=== PATIENT | male | born 1990 | race Caucasian/White ===

== ENCOUNTER 2017-03-03 13:16 | Emergency (ER) | payer OTHER ==
[~2017-03-03] VITALS: Ht 167.6 cm; Wt 127.3 kg
[2017-03-03 13:25] VITALS: BP 143/115; PULSE 74; RESP 20; O2SAT 94
[2017-03-03] MEDS ORDERED: predniSONE 20 mg Tablet PO ONE (14:15)
[2017-03-03] MEDS ORDERED: Albuterol 2.5 mg/3 mL Inhalation Solution NEB ONE (14:15)
[2017-03-03] MEDS ORDERED: Albuterol-Ipratropium 3 mL Inhalation Solution NEB ONE (14:15)
--- NOTE | 2017-03-03 14:22 | ED.REPORT ---
HPI-Dyspnea / Wheezing Date of Service Mar 03, 2017 ED Provider: Murali Tran PA-C Garry is an otherwise healthy 26-year-old male who presents emergency Department with a chief complaint of cough. Patient reports a one and a half week history of a cough associated with dyspnea on exertion, shortness of breath , wheezing, posttussive vomiting, pleuritic chest pain. Patient denies fever, chills, palpitations, abdominal pain, diarrhea, unilateral leg swelling, hemoptysis, history of cancer, history of trauma or immobilization, history of hormone use, history of PE/DVT. Admits to recently taking up pot smoking again. He also admits to vaping. Nursing Notes Stated Complaint: COUGH,VOMITING Chief Complaint: General Complaint Nursing Notes Reviewed: Yes Allergies: Coded Allergies: No Known Allergies (Verified Allergy, Unknown, 02/17/14) Scheduled Prednisone (PredniSONE) 20 Mg Tablet 40 MG PO DAILY General Time Seen by MD: 14:05 Chief Complaint Cough Past Medical History Past Medical History Unknown Past Surgical History Unknown Smoking History Unknown if Ever Smoker Social History Alcohol use tobacco abuse drug abuse all reported. Review of Systems Negative unless stated otherwise in history of present illness Physical Exam General: Well appearing, well developed, well nourished, no acute distress. Head: Atraumatic, normocephalic. Eyes: No scleral icterus or injection. No discharge. Vision grossly intact. ENT: Voice clear, hearing grossly intact. Respiratory: Clinically evident cough. Regular rate and rhythm. Diffuse bilateral wheezing. No respiratory distress. No increased work of breathing, speaks in complete sentences. Cardiovascular: Regular rate and rhythm, without murmur, gallop or rub. No pedal edema. Gastrointestinal: Abdomen flat and non-tender without guarding or rebound. Bowel sounds normoactive. Back: Normal to inspection. Skin: Warm and dry. Neurological: Grossly nonfocal. Psychological: Alert and oriented. Speech appropriate, linear and logical. Behavior appropriate. Initial Vital Signs Vital Signs (First) Date Time Temp Pulse Resp B/P Pulse Ox O2 Delivery O2 Flow Rate FiO2 03/03/17 13:25 36.6 74 20 143/115 94 Room Air Elevated blood pressure Interpretation & Diagnostics X-Ray Chest Interpretation Chest Xray Interpretation: PROCEDURE: X-RAY CHEST, TWO VIEWS ([id number]) INDICATIONS: cough IMPRESSION: No acute disease Interpretation / Wet Read by: Interpret - Radiologist Re-Eval/Medical Decision Med Decision/Clinical Course Otherwise healthy 26-year-old male just a chief complaint of cough, wheeze, shortness of breath for 10 days. Associated with posttussive vomiting. Denies fever. Recently restarted pot smoking. Admits to vaping. Physical examination reveals diffuse bilateral expiratory wheezes, otherwise benign with normal vital signs. Chest x-ray is normal. I find this reassuring against pneumonia, pneumothorax, pleural effusion Patient is Wells low risk, perc negative. I am reassured against PE. Patient improves somewhat with DuoNeb and albuterol nebulizer. I discussed case with Dr. Self, who met with and examined the patient. We believe this is most likely an asthma exacerbation. Plan to discharge with albuterol inhaler training, steroid burst. Advised regarding primary care follow -up, provided emergency return precautions. Patient verbalized understanding of , and consent to, the plan. Discharge & Departure Impression: Primary Impression: Asthma exacerbation Additional Impression: Elevated blood pressure reading Disposition: Home Discharge Condition All VS Reviewed: Yes Condition: Stable Patient Instructions: Asthma (ED) Additional Instructions: Evaluation or cough in the emergency department includes interview, physical examination and chest x-ray. These are all reassuring that this is unlikely because by an immediately dangerous condition such as pneumonia or a blood clot in her lungs. I believe this is most likely to be an exacerbation of your asthma. You've been given a dose of steroids here in the emergency department. I will write a prescription for additional doses to be taken once a day for the next 4 days starting tomorrow. I will also write you prescription for an albuterol inhaler to take 2 puffs every 4 hours for the next several days. You can take 2 puffs as needed for wheezing after that. I recommend you stop smoking and vaping as this is likely to aggravate your symptoms. Follow-up with your primary care provider in about 1 week to be sure this is progressing as expected Return to emergency department for any new or worsening symptoms including increasing shortness of breath, difficulty breathing, pain in your chest. I also note that your blood pressure was elevated during your visit to the emergency department. Please discuss this with your primary care provider. Referrals: Ej Caruso MD (PCP) EDSupervising Provider for APC: Ignacio Self MD Attending Statement Discussed case with JORDAN Tran. I evaluated the patient independently and agree with plan as above. In brief, 26-year-old male presenting with cough and wheezing. Chest x-ray is clear. PERC negative. Patient improved with nebulizers. He will be discharged with steroid course and albuterol as needed. Return precautions given. copies to: Ej Caruso MD, Seth PA-C Mar 03, 2017 14:22 Ignacio Self MD Mar 03, 2017 17:33
[2017-03-03 14:34] VITALS: PULSE 81; RESP 18; O2SAT 95
--- NOTE | 2017-03-03 14:52 | DRSVH ---
PROCEDURE: X-RAY CHEST, TWO VIEWS ([id number]) INDICATIONS: cough TECHNIQUE: 2 views of the chest were acquired. COMPARISON: [facility], , CHEST 1VW (PORTABLE), 05/06/2014, 7:58. FINDINGS: Surgical changes and devices: None. Lungs and pleura: No pleural effusions or pneumothorax. Lungs are clear. Presumed small calcified granulomas projecting in the upper lobes bilaterally. Mediastinum: Mediastinal contours are normal. Heart size is normal. Bones and chest wall: No suspicious bony abnormalities. Soft tissues appear unremarkable. IMPRESSION: No acute disease Dictated by: Nolan Simons M.D. on 03/03/2017 at 14:50 Approved by: Nolan Simons M.D. on 03/03/2017 at 14:51
[2017-03-03] MEDS ORDERED: ALBU18HF INH (15:57)
[2017-03-03] MEDS ORDERED: PRE20 PO (15:57)
[2017-03-03] MEDS ORDERED: Albuterol HFA 60 Puff 8 Gm Inhaler INHALATION PRN (16:05)
[2017-03-03] MEDS ORDERED: Albuterol HFA 200 Puff Inhaler (Vent Pts Only) INHALATION PRN (16:13)
[2017-03-03 17:00] VITALS: BP 124/72; PULSE 92; RESP 21; O2SAT 98
== END 2017-03-03 16:58 | disposition home or self-care (01) ==
LOC: SED 13:16
DX: J45.901 Unspecified asthma with (acute) exacerbation (principal); R03.0 Elevated blood-pressure reading, without diagnosis of hypertension; R11.10 Vomiting, unspecified
CPT/HCPCS: 71020; 94640; 94644; 99284; J7613; J7620